=== PATIENT | female | born 1980 | race Hispanic/Latino ===

== ENCOUNTER 2017-11-15 15:27 | Emergency (ER) | payer OTHER ==
[~2017-11-15] VITALS: Ht 160 cm; Wt 88.0 kg
[~2017-11-15 15:27] MED LIST: AMLODIPINE BESY10 M1 PO; BUTALB-CAFF-AC1 EACH PO; CYCLOBENZAPRINE10 M1 PO; GABAPENTIN300 M2 PO; HYDROXYZINE HCL25 M2 PO; HYDROXYZINE PAM25 M2 PO; IBUPROFEN800 M1 PO; KEFLEX500 M1 PO; PERCOCET 10-321 EACH PO; PERCOCET 5-3251 EACH PO; VENLAFAXINE H37.5 M4 PO; VENLAFAXINE HC150 M1 PO; VENLAFAXINE HCL75 M2 PO
--- NOTE | 2017-11-15 17:52 | ED GENERAL ADULT ---
History of Present Illness General Chief Complaint: General Adult Stated Complaint: 7 WKS PREG,NVD,FEVER,HIGH BLOOD PRESSURE Source: patient Exam Limitations: no limitations Vital Signs & Intake/Output Vital Signs & Intake/Output Vital Signs Date Time Temp Pulse Resp B/P B/P Pulse O2 O2 Flow FiO2 Mean Ox Delivery Rate 11/15 2137 98.3 98 139/95 99 Room Air 11/15 1957 98.8 9 22 123/66 98 Room Air 11/15 1751 98.1 106 18 138/75 100 Room Air 11/15 1536 98.7 106 18 121/84 97 Allergies Coded Allergies: ketorolac (From Toradol) (ITCHY/RAPID HEART RATE 02/02/16) tramadol (From Ultram) (Intermediate, ANXIETY 02/02/16) Triage Note: PT TO ED WITH C/O "I WENT TO MY REGULAR DOCTOR AND MY BLOOD PRESSURE WAS HIGH 150 OVER 90'S OR SOMETHING LIKE THAT". PT C/O DIARRHEA AND NAUSEA AND VOMITING "SINCE I'VE BEEN ". 6 WEEKS 5 DAY , C 2 P 1. Triage Nurses Notes Reviewed? yes Onset: Abrupt Duration: day(s): Timing: recent history : Yes Patient currently breastfeeds: No HPI: 11/15/17 7 PM 37-year-old female presented to the emergency department complaining of nausea vomiting and diarrhea. She is currently 7 weeks . She says she's had multiple episodes of vomiting. She saw her primary care doctor who suggested she see her PROCUREMENT ENGINEER doctor. Her PROCUREMENT ENGINEER was not available and she was told to go to the emergency department. She does admit to mild abdominal cramping. Scant vaginal bleeding yesterday. She was told by her TOE LASTER that this was normal. Her PROCUREMENT ENGINEER is Dr. Wen. (Bobby Noe DO) Reconcile Medications Amlodipine Besylate 10 MG TABLET 1 TAB PO DAILY HTN (Reported) Doxylamine/Pyridoxine HCl (Diclegis Dr 10-10 MG Tablet) 10 MG-10 MG TABLET.DR 2 TAB PO QAM N/V (Reported) Doxylamine/Pyridoxine HCl (Diclegis Dr 10-10 MG Tablet) 10 MG-10 MG TABLET.DR 3 TAB PO QPM N/V (Reported) Folic Acid (Unknown Strength) TABLET (Unknown Dose) PO DAILY SUPPLEMENT ( Reported) Venlafaxine HCl (Venlafaxine HCl ER) 150 MG TAB.ER.24 1 TAB PO DAILY ANXIETY/ DEPRESSION (Reported) (Elaina MILES,Bobby Sol) Past History Travel History Traveled to [place] past 21 day No Medical History Any Pertinent Medical History? see below for history Neurological: NONE EENT: NONE Cardiovascular: hypertension Respiratory: NONE Gastrointestinal: NONE Hepatic: NONE Renal: kidney stones PYELONEPHRITIS Musculoskeletal: herniated disk in back and neck Psychiatric: anxiety, depression Endocrine: NONE Blood Disorders: NONE Cancer(s): NONE TOE LASTER/Reproductive: NONE History of MRSA: No History of VRE: No History of CDIFF: No Tetanus Vaccine: 07/02/11 Surgical History Surgical History: none Psychosocial History Who do you live with Family Services at Home None What is your primary language Slovenian Tobacco Use: Quit >30 days ago ETOH Use: denies use Illicit Drug Use: denies illicit drug use Family History Hx Contributory? No (Bobby Noe DO) Review of Systems Review of Systems Constitutional: Denies: fever. EENTM: Denies: visual changes. Respiratory: Denies: short of breath. Cardiovascular: Denies: chest pain. GI: Reports: see HPI. Genitourinary: Reports: no symptoms. Musculoskeletal: Reports: see HPI. Skin: Denies: rash. Neurological/Psychological: Denies: headache. Hematologic/Endocrine: Reports: see HPI. (Bobby Noe DO) Physical Exam Physical Exam General Appearance: alert, awake, anxious, mild distress Head: atraumatic, normal appearance Eyes: Bilateral: normal appearance, PERRL, EOMI. Ears, Nose, Throat: normal pharynx, normal ENT inspection, hearing grossly normal Neck: normal inspection, supple, full range of motion Respiratory: normal breath sounds, chest non-tender, no respiratory distress Cardiovascular: regular rate/rhythm Peripheral Pulses: 4+ radial (R), 4+ radial (L) Gastrointestinal: soft, non-tender Back: normal range of motion Extremities: no edema Neurologic/Psych: no motor/sensory deficits, awake, alert, oriented x 3 Skin: intact, normal color, warm/dry Core Measures ACS in differential dx? No CVA/TIA Diagnosis: No Sepsis Present: No Sepsis Focused Exam Completed? No (Bobby Noe DO) Progress Differential Diagnoses I considered the following diagnoses in my evaluation of the patient: [Viral syndrome, related emesis, preeclampsia, dehydration, electrolyte derangement, diabetes] Plan of Care: Orders Procedure Date/time Status CULTURE,URINE 11/15 1752 Active URINALYSIS 11/15 1752 Complete HUMAN BETA HCG TITRE 11/15 1752 Complete COMPREHENSIVE METABOLIC PANEL 11/15 1752 Complete CBC WITHOUT DIFFERENTIAL 11/15 1752 Complete Laboratory Tests 11/15/171811: Anion Gap 16, Estimated GFR > 60, BUN/Creatinine Ratio 13.3, Glucose 93, Calcium 9.6, Total Bilirubin 0.5, AST 29, ALT 35, Alkaline Phosphatase 73, Total Protein 8.3 H, Albumin 4.7, Globulin 3.6, Albumin/Globulin Ratio 1.3, Beta HCG, Quant 03083.0, CBC w Diff NO MAN DIFF REQ, RBC 5.13, MCV 85.1, MCH 28.2, MCHC 33.1, RDW 14.6 H, MPV 6.8 L, Gran % 72.9, Lymphocytes % 22.1, Monocytes % 3.8, Eosinophils % 0.7, Basophils % 0.5, Absolute Granulocytes 10.4 H, Absolute Lymphocytes 3.1, Absolute Monocytes 0.5, Absolute Eosinophils 0.1, Absolute Basophils 0.1 11/15/17 1800: Urine Color YEL, Urine Clarity CLEAR, Urine pH 6.0, Ur Specific [place] 1.020, Urine Protein NEG, Urine Ketones NEG, Urine Nitrite NEG, Urine Bilirubin NEG, Urine Urobilinogen 0.2, Ur Leukocyte Esterase NEG, Ur Microscopic EXAM NOT REQUIRED, Urine Hemoglobin NEG, Urine Glucose NEG Microbiology 11/15 1799 URINE ROUT: Urine Culture - RECD Initial ED EKG: none (Bobby Noe DO) Diagnostic Imaging: Discussed w/RAD: Ultrasound. Radiology Impression: PATIENT: JEAN CARLOS HOLM PRESENT AGE: 37 PATIENT ACCOUNT NO: [id number] : 79 LOCATION: [facility] ORDERING PHYSICIAN: Bobby Noe DO SERVICE DATE: 11/15/17 EXAM TYPE: US - US- VIABILITY EXAMINATION: ULTRASOUND PELVIC, COMPLETE CLINICAL INFORMATION : Vaginal bleeding. Nausea. Fever. Diarrhea. 7 week . COMPARISON: CT abdomen pelvis 03/05/2017 TECHNIQUE: Transvaginal: Used to better visualize pelvic structures Transabdominal: Not adequate for visualization Spectral Doppler and color Doppler exam was utilized. LMP: 09/30/2017. Gestational age 6 weeks 4 days. SHERLY 07/07/2017 FINDINGS: UTERUS: Single uterine gestation. There is a pole and yolk sac within the gestational sac in the uterus. heart rate 136 bpm. [place]-rump length 0.9 cm. Gestational age by this measurement is 7 weeks 0 days. SHERLY 07/04/2017 ADNEXA: Ovarian vascularity: Doppler demonstrates both arterial and venous vascular flow in the right and left ovary. No evidence of ovarian torsion. Right Ovary: Small follicle in the right ovary measuring 0.8 x 0.6 x 0.9 cm. The right ovary measures 4 x 1.6 x 1.9 cm. Left Ovary: Unremarkable. Left ovary measures 4.2 x 2.5 x 2.7 cm Cul-de-sac: No Fluid IMPRESSION: Single intrauterine gestation. Estimated gestational age by this exam is 7 weeks 0 days. SHERLY 07/04/2017 DICTATED BY: Velasquez Lacy MD DATE/ TIME DICTATED:11/15/172047 SENIOR INTERACTIVE PRODUCER:SHAWN DATE/TIME TRANSCRIBED: 11/15/172047 CONFIDENTIAL, DO NOT COPY WITHOUT APPROPRIATE AUTHORIZATION. < Electronically signed in Other Vendor System> SIGNED BY: Velasquez Lacy MD [id number] Comments: 11/15/2017 7:39:07 PM patient signed out to me by Dr. Noe at shift slubber frame changer. 11/15/2017 10:44:07 PM Jean Carlos is feeling better and is tolerating clear liquids in the emergency department. She has asked to go home. (Elaina MILES,Bobby Sol) Departure Departure Condition: Stable Clinical Impression Primary Impression: Vomiting and diarrhea Secondary Impressions: Referrals: Benjamin Rehman APRN (PCP/Family) Departure Forms: Customer Survey General Discharge Information Comments The patient is a 2 para 1. 7 weeks . Vomiting and diarrhea. She was signed out to Dr. Delaney at 7 PM. She received IV fluids and IV Zofran. Would review labs and contact Dr. Wen if indicated. (Bobby Noe DO) Departure Disposition: HOME OR SELF CARE Additional Instructions: Zofran as needed for nausea or vomiting. Clear liquids and advance diet as tolerated. Contact your PROCUREMENT ENGINEER doctor this weekend or on Saturday regarding a follow-up appointment and treatment of your insomnia. Return if any concerns or sudden worsening. Please note that there might be incidental findings in your evaluation that are unrelated to the current emergency department visit. Please notify your primary care doctor about this emergency department visit in order to obtain and review all of the testing performed so that these incidental findings can be monitored as needed. If you had an x-ray performed, please understand that some fractures may not be seen on the initial set of x-rays. If your symptoms persist you might need a repeat set of x-rays to check for such a fracture. If you had a laceration evaluated, please understand that foreign bodies such as glass or wood may not be visible to the naked eye or on plain x-rays. If the wound becomes red, swollen, increasingly more painful or if there is any drainage from the wound, please have it reevaluated by a physician for the possibility of a retained foreign body. If you're unable to follow up as outlined in the discharge instructions please return to the emergency department. Thank you for choosing the [facility] Emergency Department for your care. It was a pleasure to serve you today. Bobby Delaney M.D. [facility] Prescriptions: Current Visit Scripts Ondansetron (Zofran Odt) 1 TAB SL Q6 PRN NAUSEA/VOMITING #10 TAB (Elaina MILES,Bobby Sol) Critical Care Note Critical Care Note Critical Care Time: non-applicable (Bobby Noe DO) Critical Care Note Critical Care Time: 30-74 min (Elaina MILES,Bobby Sol)
[2017-11-15 18:33] LABS: ABSOLUTE BASOPHIL COUNT 0.1 /CUMM (0.0-0.2); ABSOLUTE EOSINOPHIL COUNT 0.1 /CUMM (0.0-0.7); ABSOLUTE GRANULOCYTE CT 10.4 /CUMM (1.4-6.5); ABSOLUTE LYMPH COUNT 3.1 /CUMM (1.2-3.4); ABSOLUTE MONOCYTE COUNT 0.5 /CUMM (0.10-0.60); BASOPHIL % 0.5 % (0.0-2.0); EOSINOPHIL % 0.7 % (0-5); GRANULOCYTE % 72.9 % (42.2-75.2); HEMATOCRIT 43.7 % (37-47); MEAN CORPUSCULAR HGB 28.2 PG (27.0-31.0); MEAN CORPUSCULAR HGB CONC 33.1 G/DL (33.0-37.0); MEAN CORPUSCULAR VOLUME 85.1 FL (81.0-99.0); MEAN PLATELET VOLUME 6.8 FL (7.4-10.4); PLATELET COUNT 385 /CUMM (130-400); RBC DISTRIBUTION WIDTH 14.6 % (11.5-14.5); RED BLOOD CELL CT 5.13 /CUMM (4.20-5.40); WHITE BLOOD CELL COUNT 14.2 /CUMM (4.8-10.8)
--- NOTE | 2017-11-15 20:56 | ULTRASOUND REPORT ---
EXAMINATION: ULTRASOUND PELVIC, COMPLETE CLINICAL INFORMATION: Vaginal bleeding. Nausea. Fever. Diarrhea. 7 week . COMPARISON: CT abdomen pelvis 03/05/2017 TECHNIQUE: Transvaginal: Used to better visualize pelvic structures Transabdominal: Not adequate for visualization Spectral Doppler and color Doppler exam was utilized. LMP: 09/30/2017. Gestational age 6 weeks 4 days. SHERLY 07/07/2017 FINDINGS: UTERUS: Single uterine gestation. There is a pole and yolk sac within the gestational sac in the uterus. heart rate 136 bpm. [place]-rump length 0.9 cm. Gestational age by this measurement is 7 weeks 0 days. SHERLY 07/04/2017 ADNEXA: Ovarian vascularity:Doppler demonstrates both arterial and venous vascular flow in the right and left ovary. No evidence of ovarian torsion. Right Ovary: Small follicle in the right ovary measuring 0.8 x 0.6 x 0.9 cm. The right ovary measures 4 x 1.6 x 1.9 cm. Left Ovary: Unremarkable. Left ovary measures 4.2 x 2.5 x 2.7 cm Cul-de-sac: No Fluid IMPRESSION: Single intrauterine gestation. Estimated gestational age by this exam is 7 weeks 0 days. SHERLY 07/04/2017
[2017-11-15 21:38] VITALS: BP 139/95
[2017-11-15] MEDS ORDERED: DICLEGIS DR 101 EACH PO ×2 (21:44)
[2017-11-15] MEDS ORDERED: FOLIC ACID0.8 M2 PO (21:45)
[2017-11-15] MEDS ORDERED: ZOFRAN ODT4 M1 SL (22:45)
== END 2017-11-15 22:54 ==
LOC: ERH 15:27
PROVIDERS: Emergency Medicine
DX: O21.9 Vomiting of pregnancy, unspecified (principal); Z3A.01 Less than 8 weeks gestation of pregnancy
CPT/HCPCS: 81003; 87086; 96374; J2405; J3101